=== PATIENT | female | born 1995 | race Two or more races ===

== ENCOUNTER 2021-08-30 09:29 | Outpatient (REF) | payer OTHER, SELFPAY ==
[2021-08-30 09:57] LABS: MANUAL DIFF FLAG NO
[2021-08-30 10:12] LABS: Basophils Absolute Auto 0.1 X10*3/uL (0.0-0.2); Basophils Percent Auto 0.5 % (0-2); Eosinophils Absolute Auto 1.1 X10*3/uL (0.0-0.4); Eosinophils Percent Auto 7.4 % (0-4); Hematocrit 41.2 % (37.0-47.0); Hemoglobin 13.4 g/dl (12.0-16.0); Imm Gran Abs Auto 0.04 X10*3/uL (0.00-0.03); Imm Gran Pct Auto 0.3 % (0.0-0.4); Lymphocytes Percent Auto 33.9 % (20-40); Mean Corpuscular HGB Conc 32.5 g/dl (31.0-35.0); Mean Corpuscular Hemoglobin 28.9 pg (27.0-33.0); Mean Platelet Volume 10.8 fL (9.4-12.3); Monocytes Absolute Auto 1.1 X10*3/uL (0.1-1.2); Monocytes Percent Auto 7.5 % (2-11); Neutrophils Absolute Auto 7.4 x10*3/uL (2.0-8.3); Neutrophils Percent Auto 50.4 % (45-73); Platelet Count 389 X10*3/uL (160-400); Red Blood Count 4.63 X10*6/uL (4.20-5.50); Red Cell Distribution Width 13.4 % (11.0-16.0); White Blood Count 14.6 X10*3/uL (4.8-10.8)
[2021-08-30 10:50] LABS: Alanine Aminotransferase 24 U/L (0-31); Albumin Level 4.5 g/dL (3.5-5.0); Alkaline Phosphatase 93 U/L (39-117); Anion Gap 12 (12-20); Aspartate Amino Transferase 21 U/L (5-31); Bilirubin Total 0.5 mg/dL (0.0-1.0); Blood Urea Nitrogen 11 mg/dL (9-16); Calcium 9.8 mg/dL (8.4-10.2); Carbon Dioxide 26 mmol/L (22-29); Chloride 104 mmol/L (96-108); Cholesterol 150 mg/dL; Estimated Glomerular Filt Rate > 60; Glucose Fasting 88 mg/dL (60-99); HDL Cholesterol 53 mg/dL; LDL Cholesterol Calculated 86 mg/dl; Potassium 4.1 mmol/L (3.3-5.1); Sodium 138 mmol/L (135-145); Total Protein 7.7 g/dL (6.5-8.0); Triglycerides 57 mg/dL
[2021-08-30 11:00] LABS: Thyroid Stimulating Hormone 2.77 uIU/mL (0.32-4.0)
== END 2021-08-30 09:30 | disposition home or self-care (01) ==
LOC: HO.LAB 09:29
PROVIDERS: PCP Internal Medicine; Visit Provider Internal Medicine
DX: E66.9 Obesity, unspecified (principal); Z68.32 Body mass index [BMI] 32.0-32.9, adult; E78.5 Hyperlipidemia, unspecified; D64.9 Anemia, unspecified; J45.909 Unspecified asthma, uncomplicated
CPT/HCPCS: 36415; 80053; 80061; 84443; 85025

== ENCOUNTER 2021-11-04 09:11 | Outpatient (REF) | payer OTHER, SELFPAY ==
[2021-11-04 14:16] LABS: CT PCR NOT DETECTED (Not Detect.); NG PCR NOT DETECTED (Not Detect.)
[2021-11-05 08:02] LABS: DHEA Sulfate 213 mcg/dL (14-349); Prolactin 7.7 ng/mL
[2021-11-09 17:47] LABS: Testosterone, Total 38 ng/dL (2-45)
== END 2021-11-04 09:12 | disposition home or self-care (01) ==
LOC: HO.LAB 09:11
PROVIDERS: PCP Internal Medicine; Visit Provider Advanced Practice Midwife
DX: Z01.419 Encounter for gynecological examination (general) (routine) without abnormal findings (principal); N92.6 Irregular menstruation, unspecified; L68.0 Hirsutism; L70.9 Acne, unspecified; Z11.3 Encounter for screening for infections with a predominantly sexual mode of transmission; E66.01 Morbid (severe) obesity due to excess calories; Z68.32 Body mass index [BMI] 32.0-32.9, adult
CPT/HCPCS: 36415; 82627; 83498; 84146; 84402; 84403; 87491; 87591; 88142

== ENCOUNTER 2021-11-28 15:55 | Outpatient (REF) | payer OTHER, SELFPAY ==
--- NOTE | ~2021-11-28 | US_ITS ---
EXAMINATION: US PELVIS CLINICAL INFORMATION: Irregular menses COMPARISON: None TECHNIQUE: Ultrasound of the pelvis is performed using both transabdominal and transvaginal transducers along with Doppler. Transvaginal imaging is performed due to inadequate visualization transabdominally. FINDINGS: The uterus is retroverted and measures 8 x 2.5 x 4.7 cm in dimension. No focal uterine lesion is seen. Endometrial thickness is normal measuring from 0.4 cm. The right ovary measures 3.9 x 2.8 x 1.9 cm, volume 11 mL. Left ovary measures 4.4 x 2.8 x 2.3 cm, volume 15 mL. There are multiple small peripheral cysts or follicles in both ovaries with polycystic appearance. There is no fluid in the pelvis. US/US pelvic and transvaginal IMPRESSION: Normal-appearing uterus. Polycystic appearance of the ovaries.
== END 2021-11-28 15:56 | disposition home or self-care (01) ==
LOC: HO.US 15:55
PROVIDERS: PCP Internal Medicine; Visit Provider Advanced Practice Midwife
DX: N92.6 Irregular menstruation, unspecified (principal); L68.0 Hirsutism; L70.9 Acne, unspecified
CPT/HCPCS: 76830; 76856

== ENCOUNTER 2021-12-19 14:20 | Outpatient (REF) | payer OTHER, SELFPAY ==
--- NOTE | ~2021-12-19 | XR_ITS ---
EXAMINATION: XR WRIST, LEFT CLINICAL INFORMATION: Pain left wrist. COMPARISON: None TECHNIQUE: AP and lateral views of the left wrist are obtained for 2 views. FINDINGS: Normal bony mineralization. No periarticular demineralization. No acute or healing fracture, dislocation, destructive process, or arthropathy. Pronator quadratus fat pad appears normal. No joint narrowing or erosive change or chondrocalcinosis. XR/XR wrist LT 2V IMPRESSION: Normal left wrist.
== END 2021-12-19 14:21 | disposition home or self-care (01) ==
LOC: HO.XRAY 14:20
PROVIDERS: PCP Internal Medicine; Visit Provider Internal Medicine
DX: M25.532 Pain in left wrist (principal)
CPT/HCPCS: 73100

== ENCOUNTER 2022-01-19 11:50 | Outpatient (REF) | payer OTHER, SELFPAY ==
[2022-01-19 14:06] LABS: Creatinine Urine 127.19 mg/dL
[2022-01-23 12:32] LABS: Cortisol Free, 24 Hr Urine 13.1 mcg/24 h (4.0-50.0); Creatinine, 24 Hr Urine 0.89 g/24 h (0.50-2.15); Total Volume, 24 Hr Urine 1150 mL
== END 2022-01-19 11:51 | disposition home or self-care (01) ==
LOC: HO.LAB 11:50
PROVIDERS: Visit Provider Internal Medicine Endocrinology, Diabetes & Metabolism
DX: L68.0 Hirsutism (principal)
CPT/HCPCS: 82530

== ENCOUNTER 2022-01-28 15:41 | Outpatient (REF) | payer OTHER, SELFPAY ==
[2022-01-28 16:03] LABS: MANUAL DIFF FLAG NO
[2022-01-28 16:47] LABS: Basophils Absolute Auto 0.1 X10*3/uL (0.0-0.2); Basophils Percent Auto 0.4 % (0-2); Eosinophils Absolute Auto 0.8 X10*3/uL (0.0-0.4); Eosinophils Percent Auto 6.4 % (0-4); Hematocrit 40.4 % (37.0-47.0); Hemoglobin 13.3 g/dl (12.0-16.0); Imm Gran Abs Auto 0.04 X10*3/uL (0.00-0.03); Imm Gran Pct Auto 0.3 % (0.0-0.4); Lymphocytes Percent Auto 24.7 % (20-40); Mean Corpuscular HGB Conc 32.9 g/dl (31.0-35.0); Mean Corpuscular Volume 85.1 fL (80.0-98.0); Mean Platelet Volume 10.5 fL (9.4-12.3); Monocytes Absolute Auto 0.7 X10*3/uL (0.1-1.2); Neutrophils Absolute Auto 7.7 x10*3/uL (2.0-8.3); Neutrophils Percent Auto 62.2 % (45-73); Platelet Count 366 X10*3/uL (160-400); Red Blood Count 4.75 X10*6/uL (4.20-5.50); Red Cell Distribution Width 14.2 % (11.0-16.0); White Blood Count 12.3 X10*3/uL (4.8-10.8)
[2022-01-28 16:56] LABS: Estimated Average Glucose 105 mg/dL; Hemoglobin A1c % 5.3 %
[2022-01-28 17:03] LABS: Glucose Random 75 mg/dL (60-115)
== END 2022-01-28 15:42 | disposition home or self-care (01) ==
LOC: HO.LAB 15:41
PROVIDERS: PCP Internal Medicine; Visit Provider Internal Medicine Endocrinology, Diabetes & Metabolism
DX: L68.0 Hirsutism (principal); D64.9 Anemia, unspecified
CPT/HCPCS: 36415; 82947; 83036; 85025

== ENCOUNTER → 2022-02-20 08:31 | Outpatient (BNVA) | payer OTHER, SELFPAY | PROVIDERS: PCP Internal Medicine; Visit Provider Dietitian, Registered | DX: Z71.3 Dietary counseling and surveillance (principal); E66.9 Obesity, unspecified; L68.0 Hirsutism | CPT/HCPCS: 97802 ==

== ENCOUNTER → 2022-05-05 12:52 | Outpatient (BNVA) | payer MEDICAID, SELFPAY | PROVIDERS: PCP Internal Medicine; Visit Provider Advanced Practice Midwife | DX: F33.1 Major depressive disorder, recurrent, moderate (principal); E28.2 Polycystic ovarian syndrome; E66.9 Obesity, unspecified; L68.0 Hirsutism; Z68.33 Body mass index [BMI] 33.0-33.9, adult; Z87.42 Personal history of other diseases of the female genital tract | CPT/HCPCS: 99212 ==

== ENCOUNTER 2022-06-19 11:46 | Emergency (ER) | payer MEDICAID, SELFPAY ==
--- NOTE | ~2022-06-19 | XR_ITS ---
EXAMINATION: XR CHEST CLINICAL INFORMATION: Cough. COMPARISON: Chest x-ray 12/20/2013 TECHNIQUE: 2 views of the chest were obtained. FINDINGS: No significant abnormality is noted involving the heart, lungs, mediastinum, bony thorax or soft tissues. XR/XR chest 2V IMPRESSION: Unremarkable chest examination.
--- NOTE | 2022-06-19 12:16 | ED_ITS ---
HPI - URI/Sore Throat General Chief Complaint: Upper Respiratory Symptoms Stated Complaint: CP, cough, cant eat Time Seen by Provider: 06/19/22 14:48 Source: patient Mode of arrival: ambulatory Limitations: no limitations History of Present Illness HPI Narrative: 27 yo female with history of asthma here with gen weakness, nasal congestion, body aches, cough, diarrhea, poor appetite x weeks. Has had use albuterol inhaler several times. No chest pain, shortness of breath, leg swelling or leg pain, abdominal pain, vomiting. No fevers, neck pain or neck stiffness, no skin rash. Related Data Previous Rx's Medication Instructions Recorded albuterol sulfate 90 mcg/actuation 2 puff inhalation Q6H PRN 08/28/21 aerosol inhaler (ProAir HFA) shortness of breath or wheezing 30 days #6.7 grams sumatriptan succinate 25 mg tablet 25 mg PO Q2-4H PRN migraine 09/24/21 headache 30 days #9 tabs escitalopram oxalate 20 mg tablet 20 mg PO DAILY 90 days #90 tabs 12/19/21 drospiren-e.estrad-l.mefol 3 1 tab PO DAILY #84 tabs 01/28/22 mg-0.02 mg-0.451 mg(24)/0.451 mg(4)tablet medroxyprogesterone 10 mg tablet 10 mg PO DAILY #10 tabs 01/28/22 (Provera) azithromycin 250 mg tablet 250 mg PO DAILY 6 days #6 tabs 06/19/22 benzonatate 200 mg capsule 200 mg PO TID PRN cough #20 caps 06/19/22 codeine 10 mg-guaifenesin 100 mg/5 5 ml PO Q6H PRN cough #118 mL 06/19/22 mL oral liquid (Virtussin AC) prednisone 20 mg tablet 40 mg PO DAILY #10 tabs 06/19/22 Allergies Allergy/AdvReac Type Severity Reaction Status Date / Time cat dander Allergy Mild hives, Verified 05/05/22 13:01 sob, itchy eyes Review of Systems Review of Systems: Yes all other systems are reviewed and are negative Constitutional: Constitutional: Reports no additional constitutional complaints, Reports body ache(s), Denies chills, Denies fever(s), Denies headache(s), Reports poor appetite and Reports weakness Eyes: Eyes: Reports no additional eye complaints and Denies change in vision ENT: Reports system reviewed and no additional complaints, except as documented, Denies dizziness, Denies headache(s), Reports nasal congestion, Denies nasal discharge and Denies neck pain Cardiovascular: Cardiovascular: Reports no additional cardiovascular complaints, Denies chest pain, Denies leg edema and Denies dyspnea Respiratory: Respiratory: Reports no additional respiratory complaints, Rep orts cough, Denies dyspnea and Reports wheezing Gastrointestinal: Gastrointestinal: Reports no additional gastrointestinal complaints, Denies abdominal pain, Reports diarrhea, Denies nausea and Denies vomiting Genitourinary: Genitourinary: Reports no additional female genitourinary complaints and Denies urinary incontinence Musculoskeletal: Musculoskeletal: Reports no additional musculoskeletal complaints, Denies back pain, Denies arthralgias, Denies joint swelling, Denies neck pain, Denies numbness and Denies tingling Integumentary/Breasts: Skin/Breast: Reports system reviewed and no additional complaints, except as docu and Denies rash Neurologic: Reports system reviewed and no additional complaints, except as documented, Denies Abnormal speech present, Denies dizziness, Denies headache(s), Denies numbness, Denies tingling and Reports weakness Allergic/Immunologic: Allergic/Immunologic: Reports wheezing PMFSH Past Medical History Attestation statement: The following information was validated with the patient. Source: old records reviewed and nursing notes reviewed Medical History Class 1 obesity with body mass index (BMI) of 32.0 to 32.9 in adult CANDI (generalized anxiety disorder) Headache Hirsutism History of PCOS Insomnia Mild asthma Moderate recurrent major depression Surgical History No pertinent past surgical history Family History Family History Mother Seizures Depression with anxiety Lupus Bipolar 1 disorder Father Hypercholesterolemia Social History Social History Housing: Apartment Alcohol intake: current Alcohol intake frequency: holidays/special occasions only Alcohol type: wine Patient Tobacco Use Status: Never used Tobacco e-Cigarette/Vaping Use: Never Used Second Hand Smoke Exposure: No Advance Directives: No Advance Directives Information Provided: Yes service: No Current occupational status: employed Current occupational exposures/hazards: No Sexual orientation: Bisexual Gender identity: Female Cognitive needs: No Hearing needs: No Vision needs: No Physical Exam Vital Signs: Vital Signs: Last Vital Signs Temp 98.0 F 06/19/22 12:18 Pulse 103 H 06/19/22 12:18 Resp 18 06/19/22 12:18 BP 144/36 H 06/19/22 12:18 Pulse Ox 99 06/19/22 12:18 O2 Del Method 06/19/22 12:18 BMI result Body Mass Index 31.8 Const: General: cooperative, healthy appearing, comfortable and no acute distress Orientation/consciousness: patient oriented x3 Limitations: no limitations HEENT: Head: Yes normal to inspection Ears: hearing grossly normal bilaterally and TM's normal bilaterally General nose exam: Normal external nose present Face and sinus: Yes normal facial exam Mouth: Normal oral and palatal mucosa present Throat: Yes posterior oropharynx normal, Yes tonsils normal and Yes uvula midline Eyes: General: appearance normal, both eyes and all related structures Pupils: Equal, round and reactive pupils present Neck: Neck: Yes normal visual inspection, Yes full ROM, Yes no lymphadenopathy and Yes no meningeal signs Chest: Chest palpation & inspection: normal inspection of the chest Resp: Other: Slight expiratory wheezing Frequent bronchospastic cough noted Effort & Inspection: normal respiratory effort Cardio: Rate: regular rate Rhythm: regular rhythm Peripheral pulses: Peripheral pulses 2+ throughout GI: Inspection: Yes normal to inspection Palpation (GI): Soft to palpation and nontender Auscultation: normal bowel sounds Back/Spine/Pelvis: Thoracic/Lumbar Spine: thoracic and lumbar spine normal to inspection Skin: General skin exam: no rashes or lesions noted Neuro: General: patient oriented x3, no meningeal signs, no focal motor deficits and normal sensation to monofilament Cranial nerves: Yes Equal, round and reactive pupils present Cognition (Neuro): normal cognition Speech: No Abnormal speech present Gait exam (Neuro): Normal gait present Motor exam (neuro): 5/5 motor strength present throughout Extrem: General: Yes normal to inspection Course Course Course Narrative: This is a rapid medical exam. Deferred additional HPI, ROS, PE to primary provider. 27 yo female with history of asthma here with gen weakness, nasal congestion, body aches, cough, diarrhea, poor appetite x weeks. Will check CXR, testing for flu, covid, rsv. VSS. Reevaluation(s) Reevaluation #1: testing for flu, COVID, RSV are negative. Chest x-ray shows no signs of pneumonia. Likely bronchitis. Patient be treated with course of antibiotics, prednisone. Patient is adequate albuterol MDI at home. Will give cough suppressant. Reviewed worrisome signs symptoms of when to return to the emergency room. Comfortable plan for discharge home. Medical Decision Making Medical Decision Making [facility] Narrative: 27 yo female with history of asthma here with gen weakness, nasal congestion, body aches, cough, diarrhea, poor appetite x weeks. Will send testing for flu, COVID, RSV and check chest x-ray Differential Diagnosis Differential Diagnoses: The differential diagnosis associated with the presentation includes Viral syndrome, influenza, pneumonia Perc score 0 Lab Data [facility] Lab Attestation statement: I reviewed the patient's lab results. Labs: Lab Results 06/19/22 Range/Units 13:38 Influenza Type A (PCR) NEGATIVE (Negative) Influenza Type B (PCR) NEGATIVE (Negative) RSV RNA Qual (PCR) NEGATIVE (Negative) SARS-CoV-2 RNA (RT-PCR) NEGATIVE (Negative) Independent Interpretation I performed an independent interpretation of an: Plain X-Ray Interpretation: I independently reviewed the x-ray which shows no signs of pneumonia Radiology Impression Discussion of test interpretation with radiology: I have reviewed the radiologist's reading. Radiologist Impression: FINDINGS: No significant abnormality is noted involving the heart, lungs, mediastinum, bony thorax or soft tissues. XR/XR chest 2V IMPRESSION: Unremarkable chest examination. Prescription Management I considered prescription management with: Antibiotic Discharge Plan Discharge Clinical Impression: Bronchitis Patient Disposition: Home, Self-Care Instructions: Acute Bronchitis (ED) Additional Instructions: Testing for flu, COVID, RSV are negative Chest x-ray shows no signs of pneumonia Take the Tessalon while working. Save the Virtussin for night time only Prescriptions: New azithromycin 250 mg tablet 250 mg PO DAILY 6 Days Qty: 6 0RF Rx Instructions: start on day 2 of therapy prednisone 20 mg tablet 40 mg PO DAILY Qty: 10 0RF benzonatate 200 mg capsule 200 mg PO TID PRN (Reason: cough) Qty: 20 0RF codeine-guaifenesin [Virtussin AC] 10-100 mg/5 mL liquid 5 ml PO Q6H PRN (Reason: cough) Qty: 118 0RF No Action sumatriptan succinate 25 mg tablet 25 mg PO Q2-4H PRN (Reason: migraine headache) 30 Days Qty: 9 0RF Rx Instructions: do not exceed 8 doses per 24 hrs albuterol sulfate [ProAir HFA] 90 mcg/actuation HFA aerosol inhaler 2 puff inhalation Q6H PRN (Reason: shortness of breath or wheezing) 30 Days Qty: 6.7 1RF escitalopram oxalate 20 mg tablet 20 mg PO DAILY 90 Days Qty: 90 2RF medroxyprogesterone [Provera] 10 mg tablet 10 mg PO DAILY Qty: 10 0RF drospirenone-e.estradiol-lm.FA 3-0.02-0.451 mg (24) (4) tablet 1 tab PO DAILY Qty: 84 4RF Referrals: Larissa Sanchez MD [Primary Care Provider] - Interventions: ED Discharge Assessment Last Done: 06/19/22 14:53 Discharge Date/Time: 06/19/22 14:55
[2022-06-19 12:18] VITALS: BP 144/36; PULSE 103; RESP 18; TEMP 36.7; O2SAT 99; BMI 31.8
[2022-06-19 14:20] LABS: Influenza A PCR NEGATIVE (Negative); Influenza B PCR NEGATIVE (Negative); Resp Syncy Virus RNA Qual PCR NEGATIVE (Negative); SARS COV2 PCR INHOUSE NEGATIVE (Negative)
== END 2022-06-19 14:55 | disposition home or self-care (01) ==
PROVIDERS: Nurse Practitioner Family; Emergency Provider Student in an Organized Health Care Education/Training Program; PCP Internal Medicine
DX: J40 Bronchitis, not specified as acute or chronic (principal); Z20.828 Contact with and (suspected) exposure to other viral communicable diseases
CPT/HCPCS: 0241U; 71046; 99282; 99283

== ENCOUNTER 2023-04-21 09:21 | Emergency (ER) | payer MEDICAID, SELFPAY ==
--- NOTE | ~2023-04-21 | XR_ITS ---
EXAMINATION: XR CHEST CLINICAL INFORMATION: Coughing, trouble breathing. COMPARISON: None available. TECHNIQUE: Frontal view of the chest was obtained. FINDINGS: No significant abnormality is noted involving the heart, lungs, mediastinum, bony thorax or soft tissues. XR/XR chest 1V IMPRESSION: Unremarkable chest examination.
[2023-04-21 09:23] VITALS: BP 121/66; PULSE 94; RESP 18; TEMP 36.8; O2SAT 99; BMI 30.2
[2023-04-21 09:54] LABS: COVID-19 Test Negative (Negative); IDNOW Serial# 08D9AD1C
--- NOTE | 2023-04-21 10:43 | ED_ITS ---
HPI - Asthma General Chief Complaint: Asthma Stated Complaint: Diff Breathing Time Seen by Provider: 04/21/23 10:38 Source: patient and RN notes reviewed Mode of arrival: ambulatory Limitations: no limitations History of Present Illness HPI Narrative: This is a 28-year-old female, with a history of asthma, presenting to the emergency department with complaints of worsening asthma for the last 3 days. Patient states that she exposed herself to a cat which she is allergic to. She has been using her at home inhaler more often without any relief. Denies any fevers or chills. Reports mild congestion. She reports a productive cough. Denies nausea, vomiting, or diarrhea. She states that her asthma is typically well controlled. No other complaints or concerns at this time. MD complaint: asthma attack , shortness of breath and wheezing Onset (ago): day(s) Context: allergen exposure and pet exposure Associated symptoms: productive cough Asthma History: childhood onset Related Data Previous Rx's Medication Instructions Recorded albuterol sulfate 90 mcg/actuation 2 puff inhalation Q6H PRN 08/28/21 aerosol inhaler (ProAir HFA) shortness of breath or wheezing 30 days #6.7 grams sumatriptan succinate 25 mg tablet 25 mg PO Q2-4H PRN migraine 09/24/21 headache 30 days #9 tabs drospiren-e.estrad-l.mefol 3 1 tab PO DAILY #84 tabs 01/28/22 mg-0.02 mg-0.451 mg(24)/0.451 mg(4)tablet medroxyprogesterone 10 mg tablet 10 mg PO DAILY #10 tabs 01/28/22 (Provera) azithromycin 250 mg tablet 250 mg PO DAILY 6 days #6 tabs 06/19/22 benzonatate 200 mg capsule 200 mg PO TID PRN cough #20 caps 06/19/22 codeine 10 mg-guaifenesin 100 mg/5 5 ml PO Q6H PRN cough #118 mL 06/19/22 mL oral liquid (Virtussin AC) prednisone 20 mg tablet 40 mg (2 x 20 mg) PO DAILY #10 tabs 06/19/22 escitalopram oxalate 20 mg tablet 20 mg PO DAILY 90 days #90 tabs 09/14/22 albuterol sulfate 2.5 mg/3 mL 2.5 mg (3 mL) inhalation Q4-6H PRN 04/21/23 (0.083 %) solution for nebulization shortness of breath or wheezing #90 mL albuterol sulfate 90 mcg/actuation 2 puff inhalation Q4-6H PRN 04/21/23 aerosol inhaler shortness of breath or wheezing #6.7 grams guaifenesin 200 mg tablet 200 mg PO Q4H PRN cough #14 tabs 04/21/23 nebulizer and compressor #1 ea 04/21/23 prednisone 20 mg tablet 40 mg (2 x 20 mg) PO DAILY 4 days 04/21/23 #8 tabs sodium chloride 0.65 % nasal spray 2 spray intranasal Q4H PRN nasal 04/21/23 aerosol (Saline Nose) congestion #45 mL Allergies Allergy/AdvReac Type Severity Reaction Status Date / Time cat dander Allergy Mild hives, Verified 04/21/23 09:23 sob, itchy eyes Review of Systems Review of Systems: Yes all other systems are reviewed and are negative Constitutional: Constitutional: Reports as per [facility] Past Medical History Attestation statement: The following information was validated with the patient. Medical History History of PCOS Hirsutism Headache Insomnia CANDI (generalized anxiety disorder) Moderate recurrent major depression Class 1 obesity with body mass index (BMI) of 32.0 to 32.9 in adult Mild asthma Surgical History No pertinent past surgical history Family History Family History Mother Seizures Depression with anxiety Lupus Bipolar 1 disorder Father Hypercholesterolemia Social History Social History Housing: Apartment Alcohol intake: current Alcohol intake frequency: holidays/special occasions only Alcohol type: wine Patient Tobacco Use Status: Never used Tobacco e-Cigarette/Vaping Use: Never Used Second Hand Smoke Exposure: No Advance Directives: No service: No Current occupational status: employed Current occupational exposures/hazards: No Sexual orientation: Bisexual Gender identity: Female Cognitive needs: No Hearing needs: No Vision needs: No Physical Exam Vital Signs: Vital Signs: Last Vital Signs Temp 98.2 F 04/21/23 09:23 Pulse 94 04/21/23 11:04 Resp 18 04/21/23 11:04 BP 121/66 04/21/23 09:23 Pulse Ox 99 04/21/23 09:23 O2 Del Method Room Air 04/21/23 09:23 BMI result Body Mass Index 30.2 Const: General: cooperative, comfortable and no acute distress Orientation/consciousness: patient oriented x3 Limitations: no limitations HEENT: Head: Yes normal to inspection, Yes normocephalic and Yes atraumatic Ears: hearing grossly normal bilaterally General nose exam: Normal external nose present Face and sinus: Yes normal facial exam Mouth: Normal oral and palatal mucosa present, oropharynx normal and moist mucous membranes Throat: Yes posterior oropharynx normal Eyes: General: appearance normal, both eyes and all related structures E yelids: Yes eyelids normal Conjunctivae: conjunctivae normal Sclerae: sclerae normal Pupils: Equal, round and reactive pupils present EOM: EOMs intact bilaterally Neck: Neck: Yes normal visual inspection, Yes full ROM and Yes no lymphadenopathy Lymphatic: no lymphadenopathy noted Chest: Chest palpation & inspection: normal inspection of the chest Resp: Other: Inspiratory and expiratory wheezes throughout all lung mac Effort & Inspection: normal respiratory effort and able to speak in complete sentences Cardio: Rate: regular rate Rhythm: regular rhythm Heart sounds: S1 normal heart sound present and S2 normal heart sound present GI: Inspection: Yes normal to inspection Skin: General skin exam: no rashes or lesions noted Trauma: no lacerations or abrasions Wounds: no wounds Neuro: General: patient oriented x3 and moves all extremities Cranial nerves: Yes Equal, round and reactive pupils present Extrem: General: Yes normal to inspection Right upper extremity: normal to inspection Left upper extremity: normal to inspection Right lower extremity: normal to inspection Left lower extremity: normal to inspection Course Reevaluation(s) Reevaluation #1: Patient feeling much better after receiving updraft and prednisone. Lungs with only diffuse expiratory wheezes, improved. Patient tested negative for COVID. Chest x-ray does not show pneumonia. Symptoms consistent with URI an asthma exacerbation. Patient will be discharged on prednisone, Mucinex, saline spray. Given return precautions. Patient stable for discharge. Time: 11:48 Medications Administered Discontinued Medications Generic Name Dose Route Start Last Admin Trade Name Freq PRN Reason Stop Dose Admin Albuterol Sulfate 2.5 mg/ 5 mg 04/21/23 11:00 10/31/23 11:04 Albuterol Sulfate 2.5 mg INHALE 04/21/23 11:01 5 mg ONCE ONE Administration Prednisone 50 mg 04/21/23 10:48 04/21/23 11:24 Prednisone 10 Mg Tablet PO 04/21/23 10:49 50 mg ONCE ONE Administration Medical Decision Making Medical Decision Making [facility] Narrative: 28-year-old female, with a history of asthma, presents emergency department with complaints of wheezing, productive cough, and shortness of breath times several days. Recent CT exposure which she has a known allergy to. On arrival, vital signs within normal limits. Lungs with auditory wheezing, and inspiratory and expiatory wheezes throughout all lung mac. Frontal diagnoses include asthma exacerbation, reactive airway disease, upper respiratory infection, pneumonia. Plan: Viral swabs, chest x-ray, prednisone 50, ED bronch protocol Differential Diagnosis Differential Diagnoses: The differential diagnosis associated with the presentation includes See above Admission/Observation Consideration of admission/observation: Escalation of care including admission/observation considered Patient would have been admitted to the hospital had her work up had any findings where hospital admission was appropriate and her clinical presentation warranted hospital admission. Lab Data [facility] Lab Attestation statement: I reviewed the patient's lab results. Negative for COVID Labs: Lab Results 04/21/23 Range/Units 09:31 COVID-19 (RE) Negative (Negative) COVID-19 Clin Com See Note Radiology Impression Discussion of test interpretation with radiology: I have reviewed the radiologist's reading. Radiologist Impression: EXAMINATION: XR CHEST CLINICAL INFORMATION: Coughing, trouble breathing. COMPARISON: None available. TECHNIQUE: Frontal view of the chest was obtained. FINDINGS: No significant abnormality is noted involving the heart, lungs, mediastinum, bony thorax or soft tissues. XR/XR chest 1V IMPRESSION: Unremarkable chest examination. Dictated By: Neil Garcia MD Discharge Plan Discharge Clinical Impression: Upper respiratory infection, Asthma exacerbation Patient Disposition: Home, Self-Care Instructions: Asthma (ED), Upper Respiratory Infection (ED) Additional Instructions: You came to the emergency department for worsening asthma. You likely have a virus, which is triggering your asthma. Please drink plenty of fluids get plenty of rest. Use inhaler and/or nebulizer as needed for shortness of breath and wheezing. Please take prednisone as prescribed. You received your 1st dose today, please start prescription tomorrow. I am also prescribing you something called guaifenesin, this is a expectorant, this may cause you to cough more but helps get mucus out of your chest. Use prescribed nasal spray to help clear out your congestion in your nose and sinuses. If any new or worsening symptoms occur including but not limited to worsening shortness of breath, wheezing, please return for re-evaluation. Prescriptions: New Saline Nose 0.65 % aerosol,spray 2 spray intranasal Q4H PRN (Reason: nasal congestion) Qty: 45 0RF prednisone 20 mg tablet 40 mg PO DAILY 4 Days Qty: 8 0RF albuterol sulfate 90 mcg/actuation HFA aerosol inhaler 2 puff inhalation Q4-6H PRN (Reason: shortness of breath or wheezing) Qty: 6.7 0RF guaifenesin 200 mg tablet 200 mg PO Q4H PRN (Reason: cough) Qty: 14 0RF (DME) nebulizer and compressor Device See Rx Instructions .Route Qty: 1 0RF Rx Instructions: As directed albuterol sulfate 2.5 mg /3 mL (0.083 %) solution for nebulization 2.5 mg inhalation Q4-6H PRN (Reason: shortness of breath or wheezing) Qty: 90 0RF No Action sumatriptan succinate 25 mg tablet 25 mg PO Q2-4H PRN (Reason: migraine headache) 30 Days Qty: 9 0RF Rx Instructions: do not exceed 8 doses per 24 hrs escitalopram oxalate 20 mg tablet 20 mg PO DAILY 90 Days Qty: 90 2RF azithromycin 250 mg tablet 250 mg PO DAILY 6 Days Qty: 6 0RF Rx Instructions: start on day 2 of therapy prednisone 20 mg tablet 40 mg PO DAILY Qty: 10 0RF benzonatate 200 mg capsule 200 mg PO TID PRN (Reason: cough) Qty: 20 0RF codeine-guaifenesin [Virtussin AC] 10-100 mg/5 mL liquid 5 ml PO Q6H PRN (Reason: cough) Qty: 118 0RF albuterol sulfate [ProAir HFA] 90 mcg/actuation HFA aerosol inhaler 2 puff inhalation Q6H PRN (Reason: shortness of breath or wheezing) 30 Days Qty: 6.7 1RF medroxyprogesterone [Provera] 10 mg tablet 10 mg PO DAILY Qty: 10 0RF drospirenone-e.estradiol-lm.FA 3-0.02-0.451 mg (24) (4) tablet 1 tab PO DAILY Qty: 84 4RF
[2023-04-21 11:04] VITALS: PULSE 94; RESP 18; O2SAT 95
[2023-04-21] MEDS: Albuterol Sulfate 2.5 MG, Albuterol Sulfate (0.083%) 2.5 MG 5 MG INHALE (11:04)
[2023-04-21] MEDS: predniSONE 10 MG TABLET 50 MG PO (11:24)
== END 2023-04-21 11:57 | disposition home or self-care (01) ==
PROVIDERS: Emergency Provider Emergency Medicine
DX: J06.9 Acute upper respiratory infection, unspecified (principal); J45.901 Unspecified asthma with (acute) exacerbation; Z11.52 Encounter for screening for COVID-19; Z79.899 Other long term (current) drug therapy
CPT/HCPCS: 71045; 87635; 99283; 99284

== ENCOUNTER 2023-10-16 11:31 | Outpatient (REF) | payer MEDICAID, SELFPAY ==
[2023-10-16 14:09] LABS: Alanine Aminotransferase 36 U/L (0-31); Albumin Level 4.6 g/dL (3.5-5.0); Alkaline Phosphatase 76 U/L (39-117); Anion Gap 14 (12-20); Aspartate Amino Transferase 30 U/L (5-31); Bilirubin Direct 0.1 mg/dL (0.0-0.5); Bilirubin Total 0.3 mg/dL (0.0-1.0); Blood Urea Nitrogen 10 mg/dL (9-16); Calcium 9.3 mg/dL (8.4-10.2); Carbon Dioxide 22 mmol/L (22-29); Chloride 108 mmol/L (96-108); Cholesterol 148 mg/dL (<200); Estimated Glomerular Filt Rate > 60; Glucose Random 83 mg/dL (60-115); HDL Cholesterol 59 mg/dL (>40); LDL Cholesterol Calculated 79 mg/dL (<100); Potassium 3.9 mmol/L (3.3-5.1); Sodium 140 mmol/L (135-145); Triglycerides 53 mg/dL (<150)
[2023-10-16 14:29] LABS: Free T4 (Free Thyroxine) 0.98 ng/dL (0.71-1.85); Thyroid Stimulating Hormone 1.79 uIU/mL (0.32-4.0); Vitamin D 25-OH Total 34.9 ng/mL (>30)
[2023-10-16 15:02] LABS: CT PCR NOT DETECTED (Not Detect.); NG PCR NOT DETECTED (Not Detect.)
[2023-10-17 04:34] LABS: Hepatitis A Antibody IgG Nonreactive (Nonreactive); ~Hepatitis A Antibody IgG 0.49 S/CO (0.00-0.99)
== END 2023-10-16 11:32 | disposition home or self-care (01) ==
LOC: HO.HHCL 11:31
PROVIDERS: Visit Provider Family Medicine
DX: Z00.00 Encounter for general adult medical examination without abnormal findings (principal); Z11.3 Encounter for screening for infections with a predominantly sexual mode of transmission; F33.9 Major depressive disorder, recurrent, unspecified; J45.21 Mild intermittent asthma with (acute) exacerbation; E28.2 Polycystic ovarian syndrome
CPT/HCPCS: 0353U; 36415; 80048; 80061; 80076; 82306; 84439; 84443; 86708

== ENCOUNTER 2023-12-23 13:04 | Emergency (ER) | payer MEDICAID, SELFPAY ==
[2023-12-23 13:21] VITALS: BP 136/57; PULSE 76; RESP 16; TEMP 36.3; O2SAT 100; BMI 29.1
--- NOTE | 2023-12-23 13:24 | ED.GENADULT ---
HPI - General Adult General Stated complaint: dog bite 12/21 Time Seen by Provider: 12/23/23 13:24 Source: patient Mode of arrival: ambulatory Limitations: no limitations History of Present Illness ED Provider: AXEL garcia HPI narrative: 28 yo f presents w/ dog bite to left hand occurred last night around 5-6 pm. She was walking with her dog and an unleashed pitbull came up and bit her left hand. Dog UTD on shot. Shes UTD on tetanus. Reports pain at site of puncture. Able to move all fingers however. No fevers, chills, drainage, numbness or tingling. Related Data Previous Rx's ?Medication ?Instructions ?Recorded albuterol sulfate 90 mcg/actuation 2 puff inhalation Q6H PRN 08/28/21 aerosol inhaler (ProAir HFA) shortness of breath or wheezing 30 days #6.7 grams sumatriptan succinate 25 mg tablet 25 mg PO Q2-4H PRN migraine 09/24/21 headache 30 days #9 tabs drospiren-e.estrad-l.mefol 3 1 tab PO DAILY #84 tabs 01/28/22 mg-0.02 mg-0.451 mg(24)/0.451 mg(4)tablet medroxyprogesterone 10 mg tablet 10 mg PO DAILY #10 tabs 01/28/22 (Provera) azithromycin 250 mg tablet 250 mg PO DAILY 6 days #6 tabs 06/19/22 benzonatate 200 mg capsule 200 mg PO TID PRN cough #20 caps 06/19/22 codeine 10 mg-guaifenesin 100 mg/5 5 ml PO Q6H PRN cough #118 mL 06/19/22 mL oral liquid (Virtussin AC) prednisone 20 mg tablet 40 mg (2 x 20 mg) PO DAILY #10 tabs 06/19/22 albuterol sulfate 2.5 mg/3 mL 2.5 mg (3 mL) inhalation Q4-6H PRN 04/21/23 (0.083 %) solution for nebulization shortness of breath or wheezing #90 mL albuterol sulfate 90 mcg/actuation 2 puff inhalation Q4-6H PRN 04/21/23 aerosol inhaler shortness of breath or wheezing #6.7 grams guaifenesin 200 mg tablet 200 mg PO Q4H PRN cough #14 tabs 04/21/23 nebulizer and compressor #1 ea 04/21/23 prednisone 20 mg tablet 40 mg (2 x 20 mg) PO DAILY 4 days 04/21/23 #8 tabs sodium chloride 0.65 % nasal spray 2 spray intranasal Q4H PRN nasal 04/21/23 aerosol (Saline Nose) congestion #45 mL escitalopram oxalate 20 mg tablet 20 mg PO DAILY 90 days #90 tabs 06/07/23 amoxicillin 875 mg-potassium 1 tab PO BID 7 days #14 tabs 12/23/23 clavulanate 125 mg tablet Allergies Allergy/AdvReac Type Severity Reaction Status Date / Time cat dander Allergy Mild hives, Verified 12/23/23 13:24 sob, itchy eyes Review of Systems Review of Systems: Yes all other systems are reviewed and are negative [facility] Past Medical History Attestation statement: The following information was validated with the patient. Source: old records reviewed and nursing notes reviewed Medical History History of PCOS Hirsutism Headache Insomnia CANDI (generalized anxiety disorder) Moderate recurrent major depression Class 1 obesity with body mass index (BMI) of 32.0 to 32.9 in adult Mild asthma Surgical History No pertinent past surgical history Family History Family History Mother Seizures Depression with anxiety Lupus Bipolar 1 disorder Father Hypercholesterolemia Social History Social History Housing: Apartment Alcohol intake: current Alcohol intake frequency: holidays/special occasions only Alcohol type: wine Patient Tobacco Use Status: Never used Tobacco e-Cigarette/Vaping Use: Never Used Second Hand Smoke Exposure: No service: No Current occupational status: employed Current occupational exposures/hazards: No Sexual orientation: Bisexual Gender identity: Female Cognitive needs: No Hearing needs: No Vision needs: No Physical Exam ED Vital Signs: vss Appearance: Alert.? Oriented X3.? No acute distress.? Head: Normocephalic, atraumatic, no step-offs or deformities Eyes: Pupils equal, round and reactive to light.? CVS:Pulses normal.? Respiratory: No respiratory distress.? Abdomen: Soft and nontender.? Skin: Skin warm and dry.? Normal skin color.? Normal skin turgor.? + puncture wound to left proxiamal 3th and 4th phalanx. 2+ radial pulses equal and b/l. No wrist drop Extremities: No lower extremity edema.? No calf ttp. 5/5 strength to bilateral upper and lower extremities Neuro: Oriented X 3.? No motor deficit.? No sensory deficit. CN 2-12 intact Medical Decision Making Medical Decision Making MDM Narrative: 28yo f presents w/ left hand dog bite yesterday pe + puncture wound to left proxiamal 3th and 4th phalanx. 2+ radial pulses equal and b/l. No wrist drop hx and pe concerning for animal bite no signs of infection. Dog utd on shots. No abscess. No signs of fx/ dislocation/ nv comproimise Plan- dc w/ atbx Differential Diagnosis Differential Diagnoses: The differential diagnosis associated with the presentation includes hx and pe concerning for animal bite no signs of infection. Dog utd on shots. No abscess. No signs of fx/ dislocation/ nv comproimise Admission/Observation Consideration of admission/observation: Escalation of care including admission/observation considered No indication Prescription Management I considered prescription management with: Antibiotic Critical Care Time Critical Care Time Critical Care Time: No Discharge Plan Discharge Clinical Impression: Dog bite, Puncture wound Patient Disposition: Home, Self-Care Instructions: Animal Bite (ED) Additional Instructions: Take your medications as prescribed. If you were prescribed antibiotics today, it is important that you take your medication to their entirety, do not skip any doses, do not finish them early. Follow-up with your primary care provider this week. Return to the emergency department with new or worsening symptoms. In case of emergency call 911 Prescriptions: New amoxicillin-pot clavulanate 875-125 mg tablet 1 tab PO BID 7 Days Qty: 14 0RF No Action sumatriptan succinate 25 mg tablet 25 mg PO Q2-4H PRN (Reason: migraine headache) 30 Days Qty: 9 0RF Rx Instructions: do not exceed 8 doses per 24 hrs escitalopram oxalate 20 mg tablet 20 mg PO DAILY 90 Days Qty: 90 2RF azithromycin 250 mg tablet 250 mg PO DAILY 6 Days Qty: 6 0RF Rx Instructions: start on day 2 of therapy prednisone 20 mg tablet 40 mg PO DAILY Qty: 10 0RF benzonatate 200 mg capsule 200 mg PO TID PRN (Reason: cough) Qty: 20 0RF codeine-guaifenesin [Virtussin AC] 10-100 mg/5 mL liquid 5 ml PO Q6H PRN (Reason: cough) Qty: 118 0RF Saline Nose 0.65 % aerosol,spray 2 spray intranasal Q4H PRN (Reason: nasal congestion) Qty: 45 0RF prednisone 20 mg tablet 40 mg PO DAILY 4 Days Qty: 8 0RF albuterol sulfate 90 mcg/actuation HFA aerosol inhaler 2 puff inhalation Q4-6H PRN (Reason: shortness of breath or wheezing) Qty: 6.7 0RF guaifenesin 200 mg tablet 200 mg PO Q4H PRN (Reason: cough) Qty: 14 0RF (DME) nebulizer and compressor Device See Rx Instructions .Route Qty: 1 0RF Rx Instructions: As directed albuterol sulfate 2.5 mg /3 mL (0.083 %) solution for nebulization 2.5 mg inhalation Q4-6H PRN (Reason: shortness of breath or wheezing) Qty: 90 0RF albuterol sulfate [ProAir HFA] 90 mcg/actuation HFA aerosol inhaler 2 puff inhalation Q6H PRN (Reason: shortness of breath or wheezing) 30 Days Qty: 6.7 1RF medroxyprogesterone [Provera] 10 mg tablet 10 mg PO DAILY Qty: 10 0RF drospirenone-e.estradiol-lm.FA 3-0.02-0.451 mg (24) (4) tablet 1 tab PO DAILY Qty: 84 4RF Referrals: Physician,None [Primary Care Provider] - 2 days Stand Alone Forms: Work/School Release Print Language: Kosovan
[2023-12-23 13:26] VITALS: BP 136/57; PULSE 76; RESP 16; TEMP 36.3; O2SAT 100
== END 2023-12-23 13:35 | disposition home or self-care (01) ==
LOC: HO.ED 13:28
PROVIDERS: Emergency Provider Emergency Medicine
DX: S61.452A Open bite of left hand, initial encounter (principal); W54.0XXA Bitten by dog, initial encounter; Y93.9 Activity, unspecified; Y92.9 Unspecified place or not applicable; Y99.9 Unspecified external cause status
CPT/HCPCS: 99282; 99283

== ENCOUNTER 2024-01-28 10:46 | Outpatient (REF) | payer MEDICAID, SELFPAY ==
[2024-01-28 13:18] LABS: MANUAL DIFF FLAG NO
[2024-01-28 13:29] LABS: Basophils Percent Auto 0.4 % (0-2); Eosinophils Absolute Auto 0.3 X10*3/uL (0.0-0.4); Eosinophils Percent Auto 3.7 % (0-4); Hematocrit 37.8 % (37.0-47.0); Imm Gran Abs Auto 0.02 X10*3/uL (0.00-0.03); Imm Gran Pct Auto 0.3 % (0.0-0.4); Lymphocytes Absolute Auto 2.9 X10*3/uL (1.2-4.9); Lymphocytes Percent Auto 37.3 % (20-40); Mean Corpuscular HGB Conc 34.4 g/dl (31.0-35.0); Mean Corpuscular Hemoglobin 30.9 pg (27.0-33.0); Mean Corpuscular Volume 89.8 fL (80.0-98.0); Mean Platelet Volume 11.6 fL (9.4-12.3); Monocytes Absolute Auto 0.5 X10*3/uL (0.1-1.2); Monocytes Percent Auto 6.9 % (2-11); Neutrophils Percent Auto 51.4 % (45-73); Platelet Count 325 X10*3/uL (160-400); Red Blood Count 4.21 X10*6/uL (4.20-5.50); Red Cell Distribution Width 12.6 % (11.0-16.0); White Blood Count 7.8 X10*3/uL (4.8-10.8)
[2024-01-28 13:47] LABS: Estimated Average Glucose 100 mg/dL; Hemoglobin A1c % 5.1 % (<6.0)
[2024-01-29 08:42] LABS: HBS Num1 2.07 mIU/mL (0-7.99); HBc Num1 0.15 S/CO (0.00-0.79); HBsAGNum1 0.33 S/CO (0.00-0.99); Hepatitis B Core Antibody Nonreactive (Nonreactive); Hepatitis B Surface Antigen Negative (Negative); ~HepC Num1 0.25 S/CO (0.00-0.79); ~Hepatitis B Surface Antibody NONREACTIVE (Nonreactive); ~Hepatitis C Antibody Nonreactive (Nonreactive)
[2024-01-29 08:58] LABS: Syphilis Screen Nonreactive (Nonreactive)
[2024-01-30 20:43] LABS: HIV RNA PCR Qn Copies Not Detected Copies/mL; HIV RNA PCR Qn Log Copies Not Detected Log cps/mL
== END 2024-01-28 10:47 | disposition home or self-care (01) ==
LOC: HO.HHCL 10:46
PROVIDERS: Visit Provider Family Medicine
DX: Z13.89 Encounter for screening for other disorder (principal)
CPT/HCPCS: 36415; 83036; 85025; 86704; 86706; 86780; 86803; 87340; 87536; 87900

== ENCOUNTER 2025-05-15 17:05 | Emergency (ER) | payer OTHER, SELFPAY ==
--- NOTE | ~2025-05-15 | US_ITS ---
CLINICAL HISTORY: Pelvic pain US pelvis transabdominal and transvaginal with doppler interrogation Comparison: None provided Findings: Transabdominal scanning performed for overall anatomy. Transvaginal scanning performed for additional detail. Anteverted uterus 7.3 cm in length. Normal echotexture. No fibroids. Normal endometrium, 8 mm thickness. Right ovary normal, 3.7 cm. Normal color flow Left ovary is mildly prominent, measuring up to 6.4 cm. Normal color flow. A mildly complex cyst with internal echoes measuring 3.4 x 3.0 x 2.3 cm appears to reveal some retractile clot, likely hemorrhagic cyst. Trace amount of likely physiologic free fluid. Impression: 1. 3.4 cm complex, likely hemorrhagic left ovarian cyst. Consider follow-up ultrasound in approximately 3 months to determine resolution. This document has been electronically signed by: Chandan Roy MD on 05/15/2025 20:47:49
[2025-05-15 17:09] VITALS: BP 123/84; PULSE 78; RESP 14; TEMP 35.9; O2SAT 99; BMI 21.7
--- NOTE | 2025-05-15 17:12 | ED_ITS ---
HPI - Abdominal Pain General Chief Complaint: Abdominal Pain Stated Complaint: Stomach Pain Time Seen by Provider: 05/15/25 18:56 History of Present Illness ED Provider: Autumn Velásquez HPI narrative: 30-year-old female history of PCOS presents to the ED complaining of sudden onset bilateral pelvic pain, worse in the right lower pelvis. Patient reports that she was at work when she developed this pain, it radiated into the in her vaginal area, as well as rectal area and groin. Reports LMP 04/28/2025. She does endorse some heavier vaginal discharge but denies any abnormal odor, color, bleeding. No urinary complaints. No chest pain or pressure, shortness of breath. No fever, chills. Related Data Previous Rx's ?Medication ?Instructions ?Recorded albuterol sulfate 90 mcg/actuation 2 puff inhalation Q 6H PRN 08/28/21 aerosol inhaler (ProAir HFA) shortness of breath or wh eezing 30 days #6.7 grams sumatriptan succinate 25 mg tablet 25 mg PO Q2-4H PRN migraine 09/24/21 headache 30 days #9 tabs drospiren-e.estrad-l.mefol 3 1 tab PO DAILY #84 tabs 0 01/28/22 mg-0.02 mg-0.451 mg(24)/0.451 mg(4)tablet medroxyprogesterone 10 mg tablet 10 mg PO DAILY #10 ta bs 01/28/22 (Provera) azithromycin 250 mg tablet 250 mg PO DAILY 6 days #6 t abs 06/19/22 benzonatate 200 mg capsule 200 mg PO TID PRN cough #20 caps 06/19/22 codeine 10 mg-guaifenesin 100 mg/5 5 ml PO Q6H PRN cou gh #118 mL 06/19/22 mL oral liquid (Virtussin AC) prednisone 20 mg tablet 40 mg (2 x 20 mg) PO DAILY # 10 tabs 06/19/22 albuterol sulfate 2.5 mg/3 mL 2.5 mg (3 mL) inhalation Q4-6H PRN 04/21/23 (0.083 %) solution for nebulization shortness of breat h or wheezing #90 mL albuterol sulfate 90 mcg/actuation 2 puff inhalation Q 4-6H PRN 04/21/23 aerosol inhaler shortness of breath or wheez ing #6.7 grams guaifenesin 200 mg tablet 200 mg PO Q4H PRN cough #14 tabs 04/21/23 nebulizer and compressor #1 ea 04/21/23 prednisone 20 mg tablet 40 mg (2 x 20 mg) PO DAILY 4 days 04/21/23 #8 tabs sodium chloride 0.65 % nasal spray 2 spray intranasal Q4H PRN nasal 04/21/23 aerosol (Saline Nose) congestion #45 mL amoxicillin 875 mg-potassium 1 tab PO BID 7 days #14 t abs 12/23/23 clavulanate 125 mg tablet escitalopram oxalate 20 mg tablet 20 mg PO DAILY #90 t abs 03/22/24 Allergies Allergy/AdvReac Type Severity Reaction Status Date / Time cat dander Allergy Mild hives, Verified 05/15/25 17:13 sob, itchy eyes Review of Systems Review of Systems ROS is otherwise negative unless mentioned in HPI. [facility] Past Medical History Medical History History of PCOS Hirsutism Headache Insomnia CANDI (generalized anxiety disorder) Moderate recurrent major depression Class 1 obesity with body mass index (BMI) of 32.0 to 32.9 in adult Mild asthma Surgical History No pertinent past surgical history Family History Family History Mother Seizures Depression with anxiety Lupus Bipolar 1 disorder Father Hypercholesterolemia Social History Social History Housing: Apartment Alcohol intake: current Alcohol intake frequency: does not drink Alcohol type: wine Patient Tobacco Use Status: Never used Tobacco Smoked in Last 30 Days: No e-Cigarette/Vaping Use: Never Used Second Hand Smoke Exposure: No Use of substances other than those prescribed or required for medical reasons: No Advance Directives: No Advance Directives Information Provided: No Patient : No service: No Current occupational status: employed Current occupational exposures/hazards: No Sexual orientation: Bisexual Gender identity: Female Cognitive needs: No Hearing needs: No Vision needs: No Physical Exam ED Exam Exam: Nursing notes and vital signs reviewed. Constitutional: Well-appearing, NAD. Alert. Oriented X3. Eyes: EOMI. ENT: Pharynx normal. Neck: Normal inspection. Neck supple. CVS: Normal heart rate and rhythm. Pulses normal. Respiratory: No respiratory distress. Abdomen: Soft and nontender, nondistended. Tenderness to palpation over right groin. Skin: Skin warm and dry. Normal skin color. Extremities: No lower extremity edema. Neuro: Oriented X 3. No motor deficit. Vital Signs: Vital Signs - 24 hr 05/15/25 17:09 05/15/25 18:44 05/15/25 21:16 Temperature 96.7 F L 98.1 F 98.4 F Pulse Rate 78 74 70 Respiratory Rate 14 15 16 Blood Pressure 123/84 128/49 L 108/67 Pulse Oximetry 99 100 100 Oxygen Delivery Method Room Air Room Air Room Air BMI result Body Mass Index 21.7 Course Course Course Narrative: This is an RME: Additional HPI, ROS, PE not included below will be deferred to primary provider. RME assessment and note performed by: Malka Dong PA-C This is a 51-mhlk-mas-female, with a hx of PCOS, who presents to the ER with a complaint of abdominal pain. 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 Last menstrual period was on 04/28. She also reports heavier vaginal discharge but denies any other symptoms such as odor or abnormal color. She also reports the pressure goes into her vaginal/rectal region. No urinary symptoms. Plan: Labs, urine, further ER evaluation needed. I discussed with patient that it would be in her best interest to have a pelvic ultrasound, I advised patient that there may be an internal component to this ultrasound, she would like to discuss this further with primary provider. Medical Decision Making Medical Decision Making MDM Narrative: Upon my initial assessment, she overall appears well. Answers all questions appropriately. Reports that she initially did not want a pelvic ultrasound ordered from triage given history of trauma. 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 My concerns are for ovarian cyst or torsion, given the pelvic pain was bilateral, now worse and unilateral. Her UA upon my review is negative for any infection, lab work is stable. Pending UA at this time. I offered pain medication, she has declined. 2129-- ultrasound shows a 3.4 cm complex, likely hemorrhagic left ovarian cyst. I recommended follow up outpatient ultrasound in 3 months with OBGYN. No evidence of torsion. Patient reports that her symptoms have almost completely resolved. She is agreeable with discharge plan. For chief complaint of vaginal discharge, the swabs were ordered by the triage provider. These are currently pending, she will need to be contacted via phone for results. Differential Diagnosis Differential Diagnoses: The differential diagnosis associated with the presentation includes Ovarian cyst, ovarian torsion, UTI, STI Admission/Observation Consideration of admission/observation: Escalation of care including admission/observation considered (Not indicated) Lab Data MDM Lab Attestation statement: I reviewed the patient's lab results. (Reassuring) 05/15/25 17:33 05/15/25 17:33 Labs: Lab Results 05/15/25 05/15/25 Range/Units 17:33 17:39 WBC 11.9 H (4.8-10.8) X10*3/uL RBC 4.92 (4.20-5.50) X10*6/uL Hgb 15.2 (12.0-16.0) g/dl Hct 44.2 (37.0-47.0) % MCV 89.8 (80.0-98.0) fL MCH 30.9 (27.0-33.0) pg MCHC 34.4 (31.0-35.0) g/dl RDW 12.0 (11.0-16.0) % Plt Count 316 (160-400) X10*3/uL MPV 10.5 (9.4-12.3) fL Immature Gran % (Auto) 0.3 (0.0-0.4) % Neut % (Auto) 52.6 (45-73) % Lymph % (Auto) 35.3 (20-40) % [place] % (Auto) 6.6 (2-11) % Eos % (Auto) 4.5 H (0-4) % Baso % (Auto) 0.7 (0-2) % Lymph # (Auto) 4.2 (1.2-4.9) X10*3/uL [place] # (Auto) 0.8 (0.1-1.2) X10*3/uL Eos # (Auto) 0.5 H (0.0-0.4) X10*3/uL Baso # (Auto) 0.1 (0.0-0.2) X10*3/uL Abs Immat Gran (auto) 0.03 (0.00-0.03) X10*3/uL Absolute Neuts (auto) 6.3 (2.0-8.3) x10*3/uL Absolute Nucleated RBC 0.000 (0.0-0.012) X10*3/uL Nucleated RBC % (auto) 0.0 (0.0-0.2) /100WBC Sodium 142 (135-145) mmol/L Potassium 3.7 (3.3-5.1) mmol/L Chloride 109 H (96-108) mmol/L Carbon Dioxide 22 (22-29) mmol/L Anion Gap 15 (12-20) BUN 14 (9-16) mg/dL Creatinine 0.70 (0.5-1.4) mg/dL Estim Creat Clear Calc 92.9 Estimated GFR > 60 Random Glucose 95 (60-115) mg/dL Calcium 9.7 (8.4-10.2) mg/dL Total Bilirubin 0.2 (0.0-1.0) mg/dL Direct Bilirubin < 0.2 (0.0-0.5) mg/dL AST 28 (5-31) U/L ALT 23 (0-31) U/L Alkaline Phosphatase 48 (39-117) U/L Total Protein 8.1 H (6.5-8.0) g/dL Albumin 5.1 H (3.5-5.0) g/dL Beta HCG, Quant < 2 mIU/mL Urine Color Yellow Urine Appearance Clear Urine pH 6.0 (5.0-9.0) Ur Specific [place] 1.025 (1.005-1.025) Urine Protein Negative (Neg-Trace) mg/dL Urine Glucose (UA) Negative (Negative) mg/dL Urine Ketones Negative (Negative) mg/dL Urine Blood Trace H (Negative) Urine Nitrite Negative (Negative) Ur Leukocyte Esterase Negative (Negative) Urine RBC 3-5 H (0-2) /HPF Urine WBC 0-5 (0-5) /HPF Ur Squamous Epith Cells 0-2 (0-2) /HPF Urine Bacteria None Seen (None Seen) Hyaline Casts 0-2 (0-2) /LPF Independent Interpretation I performed an independent interpretation of an: Ultrasound Interpretation: I have reviewed the patient's imaging and agree with the radiologist's findings. Radiology Impression Discussion of test interpretation with radiology: I have reviewed the radiologist's reading. Radiologist Impression: Impression: 1. 3.4 cm complex, likely hemorrhagic left ovarian cyst. Consider follow-up ultrasound in approximately 3 months to determine resolution. Independent Historian None External Record Review External record reviewed: Office record (OBGYN visits) Prescription Management None Chronic Conditions Patient?s care impacted by: Other (PCOS) Social Determinants Patient?s care significantly limited by Social Determinants of Health including: Problems related to primary support group Discharge Plan Discharge Clinical Impression: Ovarian cyst Qualifiers: Laterality: left Qualified Code(s): N83.202 - Unspecified ovarian cyst, left side Patient Disposition: Home, Self-Care Instructions: Ovarian Cyst (ED) Additional Instructions: As we discussed, your ultrasound shows evidence of a left side ovarian cyst, likely hemorrhagic. I do recommend that you have a repeat outpatient ultrasound in the next 3 months. It is also important that you follow up outpatient with OBGYN. With any worsening complaints at any time, please seek re-evaluation in the ED. Prescriptions: No Action sumatriptan succinate 25 mg tablet 25 mg PO Q2-4H PRN (Reason: migraine headache) 30 Days Qty: 9 0RF Rx Instructions: do not exceed 8 doses per 24 hrs escitalopram oxalate 20 mg tablet 20 mg PO DAILY Qty: 90 1RF azithromycin 250 mg tablet 250 mg PO DAILY 6 Days Qty: 6 0RF Rx Instructions: start on day 2 of therapy prednisone 20 mg tablet 40 mg PO DAILY Qty: 10 0RF benzonatate 200 mg capsule 200 mg PO TID PRN (Reason: cough) Qty: 20 0RF codeine-guaifenesin [Virtussin AC] 10-100 mg/5 mL liquid 5 ml PO Q6H PRN (Reason: cough) Qty: 118 0RF Saline Nose 0.65 % aerosol,spray 2 spray intranasal Q4H PRN (Reason: nasal congestion) Qty: 45 0RF prednisone 20 mg tablet 40 mg PO DAILY 4 Days Qty: 8 0RF albuterol sulfate 90 mcg/actuation HFA aerosol inhaler 2 puff inhalation Q4-6H PRN (Reason: shortness of breath or wheezing) Qty: 6.7 0RF guaifenesin 200 mg tablet 200 mg PO Q4H PRN (Reason: cough) Qty: 14 0RF (DME) nebulizer and compressor Device See Rx Instructions .Route Qty: 1 0RF Rx Instructions: As directed albuterol sulfate 2.5 mg /3 mL (0.083 %) solution for nebulization 2.5 mg inhalation Q4-6H PRN (Reason: shortness of breath or wheezing) Qty: 90 0RF amoxicillin-pot clavulanate 875-125 mg tablet 1 tab PO BID 7 Days Qty: 14 0RF albuterol sulfate [ProAir HFA] 90 mcg/actuation HFA aerosol inhaler 2 puff inhalation Q6H PRN (Reason: shortness of breath or wheezing) 30 Days Qty: 6.7 1RF medroxyprogesterone [Provera] 10 mg tablet 10 mg PO DAILY Qty: 10 0RF drospirenone-e.estradiol-lm.FA 3-0.02-0.451 mg (24) (4) tablet 1 tab PO DAILY Qty: 84 4RF Print Language: [place] Islander
[2025-05-15 17:38] LABS: MANUAL DIFF FLAG NO
[2025-05-15 17:40] LABS: Hematocrit 44.2 % (37.0-47.0); Hemoglobin 15.2 g/dl (12.0-16.0); Imm Gran Abs Auto 0.03 X10*3/uL (0.00-0.03); Imm Gran Pct Auto 0.3 % (0.0-0.4); Lymphocytes Absolute Auto 4.2 X10*3/uL (1.2-4.9); Mean Corpuscular HGB Conc 34.4 g/dl (31.0-35.0); Mean Corpuscular Hemoglobin 30.9 pg (27.0-33.0); Mean Corpuscular Volume 89.8 fL (80.0-98.0); NRBC Abs Auto 0.000 X10*3/uL (0.0-0.012); NRBC Pct Auto 0.0 /100WBC (0.0-0.2); Platelet Count 316 X10*3/uL (160-400); Red Blood Count 4.92 X10*6/uL (4.20-5.50); White Blood Count 11.9 X10*3/uL (4.8-10.8)
[2025-05-15 17:49] LABS: Appearance Urine Clear; Glucose Urine UA Negative (Negative); PH 6.0 (5.0-9.0); Specific Gravity - Urine 1.025 (1.005-1.025); UMIC TRIGGER UACC YES
[2025-05-15 17:59] LABS: Alanine Aminotransferase 23 U/L (0-31); Albumin Level 5.1 g/dL (3.5-5.0); Alkaline Phosphatase 48 U/L (39-117); Anion Gap 15 (12-20); Aspartate Amino Transferase 28 U/L (5-31); Blood Urea Nitrogen 14 mg/dL (9-16); Calcium 9.7 mg/dL (8.4-10.2); Carbon Dioxide 22 mmol/L (22-29); Chloride 109 mmol/L (96-108); Creatinine Clr Calc Pharmacy 92.9; Estimated Glomerular Filt Rate > 60; Potassium 3.7 mmol/L (3.3-5.1); Sodium 142 mmol/L (135-145); Total Protein 8.1 g/dL (6.5-8.0)
[2025-05-15 18:44] VITALS: BP 128/49; PULSE 74; RESP 15; TEMP 36.7; O2SAT 100
--- NOTE | 2025-05-15 19:39 | PC.NURSE ---
Pt ambulatory from triage assumed care of pt at this time. A&Ox3 skin pwd respirations even unlabored. 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 Increased vaginal discharge x 1 week. Denies any other symptoms. Denies . reports pelvic tenderness at this time. US to bedside for exam at this time.
--- OUTSIDE RECORDS SUMMARY | 2025-05-15 20:38 | XMS_ITS | Encounter Summary ---
Author Organization [employer] Address [address] [place] [address] Care Team Providers Care Maintenance Department Technician Name Role Phone Graciela Bowlesfer Primary Care Provider + [phone] Encounter Details Date Type Department Care Team ([facility] st Contact Info) Description 08/17/2024 Orders Only [facility] [address] [place], [place] [id number] ProviderEdison MD Social History Tobacco Use Types Packs/Day Years Used Date Smoking Tobacco: Never Smokeless Tobacco: Never Alcohol Use Standard Drinks/Week Comments Not Asked 0 (1 standard drink = 0.6 oz pur e alcohol) Depression Answer Date Recorded Patient Health Questionnaire-9 Score 18 10/16/2023 Patient Health Questionnaire-9 Score 18 10/16/2023 Last PHQ-9: Questionnaire Data Not on file 0 10/16/2023 Housing Stability Answer Date Recorded What is your housing situation today? I have housing today, but I am worried about losing housing in the future 10/16/[address] you li ve. Do you have problems with any of the following? None of the above 10/16/2023 Food Insecurity Answer Date Recorded Within the past 12 months, y ou worried that your food would run out before you got money to buy more: Never True 09/23/2023 Within the past 12 months,th e food you bought just didn't last and you didn't have enough money to get more: Never True 08/2023 Transportation Answer Date Recorded In the past 12 months, has l ack of transportation kept you from medical appts, meetings, work or from getting things needed for daily living? No 09/23/2023 Utilities Answer Date Recorded In the past 12 months, has t he electric, gas, oil or water company threatened to shut off services in your home? No 09/23/2023 Depression Answer Date Recorded Patient Health Questionnaire-2 Score 4 10/16/2023 Comments Unknown Sex and Gender Information Value Date Recorded Sex Assigned at Female 01/28/2023 1:46 PM EDT Legal Sex Female 1:45 PM EDT Gender Identity Female 01/28/2023 1:46 PM EDT Sexual Orientation Demisexual 09/09/2023 4: 48 PM EDT Sexual Orientation Pansexual 09/09/2023 4: 48 PM EDT documented as of this encounter Plan of Treatment Not on file documented as of this encounter Procedures Procedure Name Priority Date/Time Associated Diagnosis Comments HM PAP/HPV Routine 11/05/2021 11:45 AM EDT documented in this encounter Results * HM PAP/HPV (11/05/2021 11:45 AM EDT) us Historical Provider HEALTH MAINTENANCE Final Result documented in this encounter Visit Diagnoses Not on filedocumented in this encounter Additional Health Concerns Assessment Noted Time PHQ-9 Depression Total Score: 18 024 9:03 AM EDT documented as of this encounter Care Teams Maintenance Department Technician Relationship Specialty Start Date End Date Sonal Bowles DO [address] [place] [address] PCP - General Family Medicine 10/16/23 documented as of this encounter
--- OUTSIDE RECORDS SUMMARY | 2025-05-15 20:38 | XMS_ITS | Encounter Summary ---
Author Organization [employer] Address [address] [place] [address] Care Team Providers Care Presser Hand Name Role Phone Sonal Bowles DO Primary Care Provider [phone] Reason for Visit * Reason Onset Date Comments Change PCP 02/13/2025 Encounter Details Date Type Department Care Team ([facility] st Contact Info) Description 02/13/2025 Telephone [facility] [address] [place] [address] Sonal Bowles DO [address] [place] [address] Change PCP Social History Tobacco Use Types Packs/Day Years [...] PM EDT documented as of this encounter Miscellaneous Notes * Telephone Encounter - Estevan Pickett - 02/13/2025 11:53 AM EDT Tc from pt requesting to switch providers due to the fact that pcp cancels a lot of pt apts . Contact pt art [phone] documented in this encounter Plan of Treatment Not on file documented as of this encounter Visit Diagnoses Not on filedocumented in this encounter Additional Health Concerns Assessment Noted Time PHQ-9 Depression Total Score: 18 024 9:03 AM EDT documented as of this encounter Care Teams Presser Hand Relationship Specialty Start Date End Date Sonal Bowles DO [address] [place] [address] PCP - General Family Medicine 10/16/23 documented as of this encounter
--- OUTSIDE RECORDS SUMMARY | 2025-05-15 20:38 | XMS_ITS | Clinical Summary ---
Author Organization [employer] Address [address] [place] [address] Care Team Providers Care Instructor Dramatic Arts Name Role Phone Jelena Sonal Primary Care Provider + [phone] Allergies Active Allergy Reactions Criticality Noted Date Comments Uncaria Tomentosa (Cats Claw) Hives,Itching,Swelling,Whe ezing 10/16/2023 Medications * This document contains information received from the source organization and may not represent a complete record from that organization. escitalopram (Lexapro) 20 MG tablet Take 20 mg by mouth Once per day. Active loratadine (Claritin) 10 MG tablet Take 1 tablet (10 mg) by mouth Once per day. 30 tablet 10/16/19 24 Active fluticasone (Flonase) 50 MCG/ACT nasal spray Administer 2 sprays into each nostril Once per day. Shake gently. Before first use, prime pump. After use, clean tip and replace cap. 16 g 11 10/16/19 24 Active Ventolin HFA 108 (90 Base) MCG/ACT inhaler Inhale 2 puffs every 4 (four) hours if needed for wheezing or shortness of breath. 18 g 1 10/16/19 24 Active drospirenone-e thinyl estradiol-levo mefolate calcium (Tasia Navarro) 3-0.02-0.451 MG Take 1 tablet by mouth Once per day. 28 tablet 5 10/16/19 24 Active Drospiren-Eth Estrad-Levomef ol 3-0.03-0.451 MG tablet TAKE 1 TABLET BY MOUTH EVERY DAY 84 tablet 1 04/28/20 25 Active Drospiren-Eth Estrad-Levomef ol 3-0.03-0.451 MG tablet TAKE 1 TABLET BY MOUTH EVERY DAY 84 tablet 1 11/01/19 25 025 Discontinued Active Problems Problem Noted Date Diagnosed Date Major depression, recurrent, chronic 10/16/2023 Assessment & Plan (10/21/2023 8:38 AM EDT): PLAN: (check all that apply) New/Additional Services needed Off-site services for Behavioral Health Integration Plan External OP therapy referral and OP psychiatry Referral Patient Self Plan Patient to reach out to [facility] team as needed, Comply with medication , Patient to engage in OP therapy , Patient to [facility] to [facility], and Utilize Safety Plan Assessment & Plan (10/16/2023 2:34 PM EDT): With anxiety, concerns for ADHD, and intermittent, passive suicidality -she denies any current SI/HI and has no plans to harm herself -she is given the number for crisis and contracts for safety -continue lexapro daily -will d/w [facility] re: additional med mgmt -she will meet with clinician for SAFE assessment and referral to new therapist -she is given contact info for [facility] for self-referral BMI 28.0-28.9,adult 10/16/2023 Assessment & Plan (10/16/2023 2:39 PM EDT): 5210 Rule 5 Servings of fruit and vegetables each day 2 Hour limit of screen time 1 Hour of physical activity each day 0 Sugary drinks Mild intermittent asthma 10/16/2023 Assessment & Plan (10/16/2023 2:38 PM EDT): Worsening sx x last few days, likely triggered by allergic rhinitis -tx with prednisone x 5 days -cont albuterol prn -trial claritin and flonase daily -trial tessalon pearles to help with cough -advised rtc or go to ED if sx worsen or no improvement Allergic rhinitis 10/16/2023 PCOS (polycystic ovarian syndrome) 10/16/2023 Assessment & Plan (10/16/2023 2:39 PM EDT): -restart OCPs daily -consider metformin daily -consider trial spironolactone -encouraged laser therapy for tx of hirsutism Anxiety 10/16/2023 Healthcare maintenance 10/16/2023 Assessment & Plan (10/16/2023 2:34 PM EDT): -encouraged COVID vaccine -Td today -PCV20 today -will get copy of pap smear results from [facility] -check fasting labs -STI/HIV screening Encounters Date Type Department Care Team Description 04/28/2025 Refill [facility] [address] [place] [address] Sonal Bowles DO 02/13/2025 Telephone [facility] [address] [place] [address] Sonal Bowles, Change PCP from Last 3 Months Immunizations Immunization Administration Dates Next Due DTaP 01/23/2000, 7,1995,06/09,1995 HPV, Quadrivalent 08/28/2009,04/14/2008,02/13/20 07 Hep B, Adolescent or Pediatric 1995,1994,1995 Hib ([facility]) 04/14/1996, 6,1995,03/19 IPV 01/23/2000, 6,1995,03/19 Influenza, IIV3, injectable 04/18/2008 Influenza, Split (incl. robert fied surface antigen) 03/05/2012 MMR 01/11/1999,04/14/1996 Meningococcal MCV4P ACYW-135 02/12/2007 Pneumococcal Conjugate PCV 20 10/16/2023 TD (adult), 2 Lf tetanus tox oid, preservative free, adsorbed 10/16/2023 Tdap 02/12/2007 Varicella 08/28/2009,10/14/2007 Family History Medical History Relation Name Comments Hyperlipidemia Father Anxiety disorder Mother Depression Mother Multiple sclerosis Mother Prediabetes Mother Seizures Mother Diabetes Paternal Grandmother Anxiety disorder Sister Depression Sister Irritable bowel syndrome Sister Relation Name Status Comments Father Mother Paternal Grandmother Sister Social History Tobacco Use Types Packs/Day Years Used Date Smoking Tobacco: Never Smokeless Tobacco: Never Tobacco Cessation:Counseling Given: Not Answered Alcohol Use Standard Drinks/Week Comments Not Asked [...] Orientation Pansexual 09/09/2023 4: 48 PM EDT Last Filed Vital Signs Vital Sign Reading Time Taken Comments Blood Pressure 135/75 10/16/2023 9:00 AM EDT Pulse 89 10/16/2023 9:00 AM EDT Temperature 36.9 C (98.5 F) 10/16/2023 9:00 AM EDT Respiratory Rate 24 10/16/2023 9:00 AM EDT Oxygen Saturation 98% 10/16/2023 9:00 AM EDT Inhaled Oxygen Concentration - - Weight 71.8 kg (158 lb 3.2 oz) 10/16/2023 9:00 A M EDT Height 157.5 cm (5' 2 ) 10/16/2023 9:00 AM EDT Body Mass Index 28.94 10/16/2023 9:00 AM EDT Plan of Treatment Health Maintenance Due Date Last Done Comments HIV Screening 1995 Alcohol/Substance Use Screening 2007 Family Planning (PISQ) 2010 Depression Monitoring 04/16/2024 10/16/2023, 024 SDOH Screening 10/15/2024 10/16/2023 Tobacco Screening 10/19/2024 10/20/2023 Cervical Cancer Screening 11/05/2024 HPV/Cotest 11/05/2024 Pap Smear 11/05/2024 11/05/2021 COVID-19 Vaccine ( season) 2025 05/06/2024, 07/15/2022, 12/04/2020, Additional history exists Influenza Vaccine (#1) 2025 , 03/05/2012, 04/18/2008 Disability Screening 07/19/2025 07/19/2024 DTaP/Tdap/Td Vaccines (8 - Td or Tdap) 10/15/2033 10/16/2023, 02/12/2007, 01/23/2000, Additional history exists Zoster Vaccines (1 of 2) 2045 RSV Patients and Patients Aged 60 years or older (1 - 1-dose 75+ series) 2070 Hepatitis B Vaccines Completed 1995, 1995, 1995 HIB Vaccines Completed 04/14/1996, 09/21, 1995, Additional history exists IPV Vaccines Completed 01/23/2000, 09/21, 1995, Additional history exists Meningococcal Vaccine Aged Out 02/12/2007 No greta niecy eligible based on patient's age to complete this topic HPV Vaccines Completed 08/28/2009, 03/23, 02/12/2007 Pneumococcal Vaccine: Pediatrics (0 to 5 Years) and At-Risk Patients (6 to 49) Years Completed 10/16/2023 Hepatitis C Screening Completed 01/28/2024 Hepatitis A Vaccines Aged Out No long er eligible based on patient's age to complete this topic Meningococcal B Vaccine Aged Out No l onger eligible based on patient's age to complete this topic RSV under 20 months Aged Out No longe r eligible based on patient's age to complete this topic Rotavirus Vaccines Aged Out No longer eligible based on patient's age to complete this topic Procedures Procedure Name Priority Date/Time Associated Diagnosis Comments HEPATITIS C AB W/REFL TO HCV RNA, QN, PCR Routine 01/28/2024 10:54 AM EDT Routine history and physical examination of adult BMI 28.0-28.9,adult Major depression, recurrent, chronic (CMS/HCC) Mild intermittent asthma with exacerbation PCOS (polycystic ovarian syndrome) PAP/HPV Routine 11/05/2021 11:45 AM EDT from Last 3 Months or Most Recently Relevant to Health Maintenance Results * Hepatitis C Antibody with Reflex to HCV, RNA, Quantitative, Real-Time PCR (01/28/2024 10:54 AM EDT) Hepatitis C Antibody Nonreactive Nonreactive [facility] Comment:Antibodies to HCV no t detected; does not exclude early acuteHCV infection. Blood Venous blood specimen / Unknown 01/28/2024 10:54 AM EDT 01/28/2024 1:13 PM EDT us Sonal Bowles DO LAB BLOOD ORDERABLES Final R esult [facility] [address] [place] [phone] * PAP/HPV (11/05/2021 11:45 AM EDT) us Historical Provider MD HEALTH MAINTENANCE Final Result from Last 3 Months or Most Recently Relevant to Health Maintenance Insurance [facility] C3 HSN FULL Care Teams Instructor Dramatic Arts Relationship Specialty Start Date End Date Sonal Bowles DO [address] [place] [id number] PCP - General Family Medicine 10/16/23
[2025-05-15 21:16] VITALS: BP 108/67; PULSE 70; RESP 16; TEMP 36.9; O2SAT 100
[2025-05-15 21:48] VITALS: BP 108/67; PULSE 70; RESP 16; TEMP 36.9; O2SAT 100
[2025-05-15 23:43] LABS: CT PCR Urine NOT DETECTED (Not Detect.); NG PCR Urine NOT DETECTED (Not Detect.)
== END 2025-05-15 21:49 | disposition home or self-care (01) ==
PROVIDERS: Physician Assistant Medical; Emergency Provider Student in an Organized Health Care Education/Training Program
DX: N83.202 Unspecified ovarian cyst, left side (principal); R10.23 Pelvic and perineal pain bilateral; R10.32 Left lower quadrant pain; Z20.2 Contact with and (suspected) exposure to infections with a predominantly sexual mode of transmission
CPT/HCPCS: 36415; 76830; 76856; 80048; 80076; 81001; 84702; 85025; 87491; 87591; 93975; 99284

== ENCOUNTER → 2025-05-15 19:42 | Outpatient (BNV) | payer OTHER, SELFPAY | PROVIDERS: Visit Provider Radiology Diagnostic Radiology | DX: N83.202 Unspecified ovarian cyst, left side (principal) | CPT/HCPCS: 93975 ==